=== PATIENT | male | born 1970 | race Caucasian/White ===

== ENCOUNTER 2024-12-11 10:04 | Day surgery (SDC) | payer OTHER ==
[2024-11-23 15:16] VITALS: BMI 29.2
[2024-12-11] MEDS ORDERED: PROPOFOL 20 ML ONE ×3 (12:15→12:48)
[2024-12-11] MEDS ORDERED: PHENYLEPHRINE-NS 100 MCG/ML 10 ML SYRINGE ONE (12:37)
== END 2024-12-11 13:55 | disposition home or self-care (01) ==
LOC: CSHSDC 10:04
PROVIDERS: ATTEND Surgery
DX: Z12.11 Encounter for screening for malignant neoplasm of colon (principal); D12.3 Benign neoplasm of transverse colon; D12.5 Benign neoplasm of sigmoid colon; K57.30 Diverticulosis of large intestine without perforation or abscess without bleeding; E78.2 Mixed hyperlipidemia; I10 Essential (primary) hypertension; Z88.0 Allergy status to penicillin; Z79.899 Other long term (current) drug therapy
CPT/HCPCS: 88305; J2704